=== PATIENT | female | born 1950 | race Caucasian/White ===

== ENCOUNTER 2017-07-04 17:52 | Emergency (ER) | payer OTHER ==
[~2017-07-04] VITALS: Ht 157.5 cm; Wt 52.0 kg
[2017-07-04 17:54] VITALS: TEMP 36.6; Ht 157.5 cm; Wt 52.0 kg
--- NOTE | 2017-07-04 18:44 | DIAGNOSTIC IMAGING REPORT ---
L WRIST MIN 3 VIEWS ROUTINE CLINICAL HISTORY: 67 years-old Female presenting with left wrist pain, fall. TECHNIQUE: Frontal, bilateral oblique, and lateral views of the left wrist were obtained. COMPARISON: None. FINDINGS: Extra-articular fracture of the distal radial metaphysis with apex volar angulation and mild impaction of the dorsal margin. Less than one half shaft width dorsal displacement of the distal fracture fragment. Radiocarpal articulation preserved. Radial ulnar articulation may be minimally widened. Soft tissue swelling at the wrist. Osteopenia suggested. IMPRESSION: Findings consistent with mildly impacted, angulated, and displaced fracture of the distal radial metaphysis (Colles' fracture). Findings also suspicious for subluxation of the radial ulnar articulation. Electronically signed by: Saran Guo M.D. 07/04/2017 6:43 PM Dictated Date/Time: 07/04/2017 6:40 PM
--- NOTE | 2017-07-04 19:08 | DIAGNOSTIC IMAGING REPORT ---
CT SCAN OF THE BRAIN WITHOUT IV CONTRAST CLINICAL HISTORY: Head injury. Concussion. COMPARISON STUDY: No priors. TECHNIQUE: Unenhanced axial CT scan of the brain is performed from the vertex to the skull base. A dose lowering technique was utilized adhering to the principles of ALARA. FINDINGS: Brain parenchyma: There is a subdural hemorrhage along the right convexity. This measures up to 3 mm in thickness as seen on image #15. Trace blood is also seen along the anterior falx. There is trace subarachnoid hemorrhage identified along the right-sided cortical sulci (axial image #20, axial image #17, and axial image #14). There is no mass effect or evidence of acute territorial ischemia by CT criteria. Benson-white matter is preserved. Ventricles, sulci, cisterns: Normal in configuration. No intraventricular blood is seen. Intracranial vasculature: There is atherosclerotic calcification of the cavernous carotid and vertebral arteries. Calvarium: No depressed calvarial fracture is seen. Sinuses and mastoids: There is an air-fluid level in the left maxillary antrum. Fluid is also seen within the left sphenoid sinuses. The remaining visualized paranasal sinuses are clear. The mastoid air cells are well pneumatized. Orbits: There is a nondistracted fracture involving the lateral wall of the left orbit as well as periorbital soft tissue hematoma. The right bony orbit appears intact. IMPRESSION: 1. There is a small subdural hematoma identified along the right convexity. Trace extra-axial blood is also seen along the anterior falx. There is no associated mass effect. 2. There are several small foci of subarachnoid hemorrhage identified along the right-sided cortical sulci. 3. There is a nondistracted fracture involving the lateral wall of the left orbit with left periorbital soft tissue hematoma. See report of CT scan of the facial bones performed concurrently for detailed facial bone findings. Findings were called to Dr. Estrella in the emergency department at the time of interpretation. Electronically signed by: Dajuan Ahuja M.D. 07/04/2017 7:07 PM Dictated Date/Time: 07/04/2017 6:58 PM
--- NOTE | 2017-07-04 19:12 | DIAGNOSTIC IMAGING REPORT ---
FACIAL BONES-MXILLOFAC WITHOUT CLINICAL HISTORY: 67 years-old Female presenting with fall, left eye swelling. +loc. TECHNIQUE: Multidetector CT of the face was performed without the use of intravenous contrast. IV contrast: None. A dose lowering technique was used consistent with the principles of ALARA (as low as reasonably achievable). COMPARISON: None. CT DOSE (mGy.cm): The estimated cumulative dose is 829.06 mGy.cm. FINDINGS: Background Investigator topogram: Unremarkable. Left periorbital soft tissue infiltration and swelling consistent with contusion. No post septal infiltration in the left orbit to suggest orbital hematoma. Left globe intact. Minimally displaced fracture of the lateral wall of the left orbit is suggested given the asymmetry in comparison to the right lateral orbital wall. High density layering fluid noted in the sphenoid sinuses. Minimal mucosal thickening in the ethmoid air cells. Layering fluid also noted in the maxillary sinuses, left greater than right. Minimally displaced fracture of the anterior left maxillary wall, which extends to the left inferior orbital rim. Mild rightward deviation of the bony nasal septum. No nasal bone fracture. Upper cervical spine intact. Skull base intact. Debris noted in the bilateral external auditory canals likely cerumen. Please see separately dictated CT of the head for intracranial findings. IMPRESSION: 1. Left periorbital superficial soft tissue contusion with associated minimally displaced fractures of the left lateral orbital wall and left anterior maxillary wall. 2. High density layering fluid in the sinuses consistent with hemorrhage. 3. Please see separately dictated CT of the head for intracranial findings. Electronically signed by: Saran Guo M.D. 07/04/2017 7:11 PM Dictated Date/Time: 07/04/2017 7:01 PM
[2017-07-04 19:39] LABS: ISTAT CREATININE 0.7 mg/dl (0.6-1.3); ISTAT HEMOGLOBIN 14.3 g/dl (12.0-16.0); ISTAT IONIZED CALCIUM 1.16 mmol/l (1.12-1.32)
[2017-07-04] MEDS ORDERED: ONDANSETRON INJ 2 MG/ML 2 ML VIAL IV STA (19:53)
--- NOTE | 2017-07-04 20:41 | EMERGENCY ROOM VISIT NOTE ---
History Report prepared by Natalie: Dian Sharp Under the Supervision of: Dr. Balbir Estrella M.D. First contact with patient: 18:09 Chief Complaint: FALL Stated Complaint: SWOLLEN EYE, LEFT WRIST History of Present Illness The patient is a 67 year old female who presents to the Emergency Room with complaints of an episode of a fall occurring an hour ago. The patient states that she was watching her grand kids when she fell and lost consciousness. Per the son, the patient fell going up the stairs. The patient states that this is from bad shoes. The patient complains of left eye pain and left wrist pain. The patient denies any blood thinners. She notes that she felt fine before she fell. She currently rates her pain as a 5/10 in severity. Pt denies headache, visual changes, neck pain, chest pain, breathing difficulties, nausea, vomiting, abdominal pain, back pain, numbness, weakness, open wounds, active bleeding, or other complaints. Source of History: patient, family Onset: an hour ago Position: other (global) Symptom Intensity: 5/10 Quality: other (global) Timing: other (episode) Associated Symptoms: + LOC Note: The patient complains of left eye pain and left wrist pain. Review of Systems See HPI for pertinent positives and negatives. A total of ten systems were reviewed and were otherwise negative. Past Medical & Surgical Surgical Problems: (1) S/P partial hysterectomy Family History No pertinent family history Social History Smoking Status: Never Smoker Marital Status: Housing Status: lives alone Occupation Status: employed Current/Historical Medications No Active Prescriptions or Reported Meds Allergies Coded Allergies: No Known Allergies (Unverified , 07/04/17) Physical Exam Vital Signs Date Time Temp Pulse Resp B/P (MAP) Pulse Ox O2 Delivery O2 Flow Rate FiO2 07/04/17 19:39 81 07/04/17 19:36 79 121/67 98 Room Air 07/04/17 19:00 78 123/64 99 Room Air 07/04/17 17:54 36.6 78 16 116/72 100 Room Air Physical Exam GENERAL: Awake, alert, well appearing, no distress HEAD: Normocephalic. No winn sign. No raccoon eyes. Left periorbital ecchymosis. EYES: Normal conjunctiva. PERRL. EARS: External ears normal. Right TM normal. Left TM normal. NOSE: Atraumatic OROPHARYNX: Lips, tongue, and mucosa unremarkable. No erythema or exudate. NECK: No tracheal deviation or JVD. No posterior midline tenderness. No step offs noted. Supple. Full range of motion. RESPIRATORY: CTA bilaterally CARDIAC: Normal rate, normal rhythm. ABDOMEN: Inspection reveals no abnormalities. Soft, non distended. No tenderness to palpation. No hernias. BACK: No midline step offs or tenderness to palpation. Unremarkable. PELVIS: Stable to rock. SKIN: Normal. LYMPH: No adenopathy. MUSCULOSKELETAL: Lower extremities are atraumatic. Right upper extremity is nontender. Left shoulder and proximal arm are nontender. Slight deformity of left wrist. Small abrasion on the volar of the left wrist. No puncture wounds present. NEURO: GCS 15. Normal sensorium. No sensory or motor deficits noted. Medical Decision & Procedures ER Provider Diagnostic Interpretation: Radiology results as stated below per my review and radiologist interpretation: L WRIST MIN 3 VIEWS ROUTINE CLINICAL HISTORY: 67 years-old Female presenting with left wrist pain, fall. TECHNIQUE: Frontal, bilateral oblique, and lateral views of the left wrist were obtained. COMPARISON: None. FINDINGS: Extra-articular fracture of the distal radial metaphysis with apex volar angulation and mild impaction of the dorsal margin. Less than one half shaft width dorsal displacement of the distal fracture fragment. Radiocarpal articulation preserved. Radial ulnar articulation may be minimally widened. Soft tissue swelling at the wrist. Osteopenia suggested. IMPRESSION: Findings consistent with mildly impacted, angulated, and displaced fracture of the distal radial metaphysis (Colles' fracture). Findings also suspicious for subluxation of the radial ulnar articulation. Electronically signed by: Saran Guo M.D. 07/04/2017 6:43 PM Dictated Date/Time: 07/04/2017 6:40 PM FACIAL BONES-MXILLOFAC WITHOUT CLINICAL HISTORY: 67 years-old Female presenting with fall, left eye swelling. +loc. TECHNIQUE: Multidetector CT of the face was performed without the use of intravenous contrast. IV contrast: None. A dose lowering technique was used consistent with the principles of ALARA (as low as reasonably achievable). COMPARISON: None. CT DOSE (mGy.cm): The estimated cumulative dose is 829.06 mGy.cm. FINDINGS: Websphere Portal Developer topogram: Unremarkable. Left periorbital soft tissue infiltration and swelling consistent with contusion. No post septal infiltration in the left orbit to suggest orbital hematoma. Left globe intact. Minimally displaced fracture of the lateral wall of the left orbit is suggested given the asymmetry in comparison to the right lateral orbital wall. High density layering fluid noted in the sphenoid sinuses. Minimal mucosal thickening in the ethmoid air cells. Layering fluid also noted in the maxillary sinuses, left greater than right. Minimally displaced fracture of the anterior left maxillary wall, which extends to the left inferior orbital rim. Mild rightward deviation of the bony nasal septum. No nasal bone fracture. Upper cervical spine intact. Skull base intact. Debris noted in the bilateral external auditory canals likely cerumen. Please see separately dictated CT of the head for intracranial findings. IMPRESSION: 1. Left periorbital superficial soft tissue contusion with associated minimally displaced fractures of the left lateral orbital wall and left anterior maxillary wall. 2. High density layering fluid in the sinuses consistent with hemorrhage. 3. Please see separately dictated CT of the head for intracranial findings. Electronically signed by: Saran Guo M.D. 07/04/2017 7:11 PM Dictated Date/Time: 07/04/2017 7:[address] SCAN OF THE BRAIN WITHOUT IV CONTRAST CLINICAL HISTORY: Head injury. Concussion. COMPARISON STUDY: No priors. TECHNIQUE: Unenhanced axial CT scan of the brain is performed from the vertex to the skull base. A dose lowering technique was utilized adhering to the principles of ALARA. FINDINGS: Brain parenchyma: There is a subdural hemorrhage along the right convexity. This measures up to 3 mm in thickness as seen on image #15. Trace blood is also seen along the anterior falx. There is trace subarachnoid hemorrhage identified along the right-sided cortical sulci (axial image #20, axial image #17, and axial image #14). There is no mass effect or evidence of acute territorial ischemia by CT criteria. Benson-white matter is preserved. Ventricles, sulci, cisterns: Normal in configuration. No intraventricular blood is seen. Intracranial vasculature: There is atherosclerotic calcification of the cavernous carotid and vertebral arteries. Calvarium: No depressed calvarial fracture is seen. Sinuses and mastoids: There is an air-fluid level in the left maxillary antrum. Fluid is also seen within the left sphenoid sinuses. The remaining visualized paranasal sinuses are clear. The mastoid air cells are well pneumatized. Orbits: There is a nondistracted fracture involving the lateral wall of the left orbit as well as periorbital soft tissue hematoma. The right bony orbit appears intact. IMPRESSION: 1. There is a small subdural hematoma identified along the right convexity. Trace extra-axial blood is also seen along the anterior falx. There is no associated mass effect. 2. There are several small foci of subarachnoid hemorrhage identified along the right-sided cortical sulci. 3. There is a nondistracted fracture involving the lateral wall of the left orbit with left periorbital soft tissue hematoma. See report of CT scan of the facial bones performed concurrently for detailed facial bone findings. Findings were called to Dr. Estrella in the emergency department at the time of interpretation. Electronically signed by: Dajuan Ahuja M.D. 07/04/2017 7:07 PM Dictated Date/Time: 07/04/2017 6:58 PM Laboratory Results Test 07/04/17 19:27 Bedside Hemoglobin 14.3 g/dl (12.0-16.0) Bedside Hematocrit 42 % (37-47) Bedside Sodium 140 mEq/L (135-144) Bedside Potassium 3.5 mEq/L (3.3-5.0) Bedside Chloride 102 mEq/L (101-112) Bedside Total CO2 25 mEq/l (24-31) Anion Gap 17.0 mmol/L (16-25) Bedside Blood Urea Nitrogen 14 mg/dl (7-18) Bedside Creatinine 0.7 mg/dl (0.6-1.3) Bedside Glucose (other) 114 mg/dl (70-99) Bedside Ionized Calcium (Morales) 1.16 mmol/l (1.12-1.32) Medications Administered Medications (Trade) Dose Ordered Sig/Amena Route Start Time Stop Time Status Last Admin Dose Admin Ondansetron HCl (Zofran Inj) 4 mg NOW STAT IV 07/04/17 19:53 07/04/17 19:54 DC 07/04/17 20:11 4 MG Procedure Splinting Indication: Fracture Verbal consent obtained. Risks and benefits were explained with the usual customary discussion. The injured extremity was identified. The patient was prepped and measured for the placement of a volar ortho-glass splint. Splint applied in the standard fashion over a layer of webril and secured using an elastic bandage. Set into a position of function. Normal neurovascular status after placement verified by me. The patient tolerated the procedure well. No complications. ED Course 1814: The patient was evaluated in room A10. A complete history and physical exam was performed. 1908: I reevaluated the patient and she is still in no pain. She declines pain medication and is currently being splinted. I discussed her test results with her and she chose to be transferred to [facility]. 1918: I discussed the patient's case with Dr. Hopper. They are willing to accept the patient to be further monitored and treated at [facility]. 1951: I reevaluated the patient and she is having intermittent nausea. I am giving her some nausea medication. 1952: Ordered Zofran Inj 4 mg IV. Medical Decision Triage Nursing notes reviewed and agree them. Additional history obtained from family. The patient's history was concerning for traumatic injury Differential diagnosis: Etiologies such as intracranial, neurologic, fracture, dislocation, intra- abdominal, pneumothorax, intrathoracic ,as well as other traumatic pathologies were entertained. Physical examination findings: Visible. Left wrist deformity. No clear evidence of open fracture. Neurologically intact. No distracting injury. No neck findings. ER treatment provided: Patient declined analgesia on multiple occasions. Splinting On reassessment the patient felt well but noted some slight nausea. Zofran 4 mg IV Diagnostic interpretation by me: The labs revealed an unremarkable i-STAT Imaging studies: CT and x-rays as above The patient has trace subarachnoid and subdural blood. She has not supposed fractures of the orbital wall here she has no entrapment. She has a fracture of the left wrist and this was splinted. The patient declined analgesia on every assessment. She had no distracting injury. She will need transfer to a trauma facility as neurosurgery is not available here. The patient and family request [facility]. Consultation: A consultation was placed with Dr. Hopper at the [facility]'s emergency Department. The case was discussed and diagnostics were reviewed. The patient was accepted for trauma transfer. Interfacility medical command done by me. Paperwork and imaging compiled and sent with the patient. The patient was hemodynamically stable prior to transfer. Medication Reconcilliation Current Medication List: was personally reviewed by me Blood Pressure Screening Patient's blood pressure: Normal blood pressure Blood pressure disposition: Did not require urgent referral Consults Time Called: 1917 Consulting Physician: Dr. Hopper Returned Call: 1918 I discussed the patient's case with Dr. Hopper. They are willing to accept the patient to be further monitored and treated at [facility]. Impression Primary Impression: Subarachnoid hemorrhage Additional Impressions: Subdural hematoma Orbital wall fracture Left wrist fracture Scribe Attestation The scribe's documentation has been prepared under my direction and personally reviewed by me in its entirety. I confirm that the note above accurately reflects all work, treatment, procedures, and medical decision making performed by me. Departure Information Dispostion Transfer Acute Care Facility Prescriptions No Active Prescriptions or Reported Meds Referrals No Doctor, Assigned (PCP) Patient Instructions [facility] Problem Qualifiers
[2017-07-04 21:35] VITALS: BP 119/60; PULSE 85; O2SAT 97
== END 2017-07-04 21:36 | disposition short-term general hospital (02) ==
LOC: C.EDB 17:54 → C.EDA 21:36
DX: S06.6X9A Traumatic subarachnoid hemorrhage with loss of consciousness of unspecified duration, initial encounter (principal); S06.5X9A Traumatic subdural hemorrhage with loss of consciousness of unspecified duration, initial encounter; S02.82XA Fracture of other specified skull and facial bones, left side, initial encounter for closed fracture; S52.532A Colles' fracture of left radius, initial encounter for closed fracture; W10.9XXA Fall (on) (from) unspecified stairs and steps, initial encounter; Y92.89 Other specified places as the place of occurrence of the external cause